=== PATIENT | male | born 1990 | race Caucasian/White ===

== ENCOUNTER 2020-07-11 23:37 | Emergency (ER) | payer MEDICAID, SELFPAY ==
[2020-07-11 23:38] VITALS: BP 128/78; PULSE 107; RESP 18; TEMP 36.7; O2SAT 100; BMI 25.0
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
[2020-07-12] MEDS: Ketorolac Tromethamine 60 MG/2 ML VIAL IM (01:20)
[2020-07-12] MEDS: Amoxicillin/Potassium Clav 875 MG TABLET PO (01:20)
[2020-07-12] MEDS: Cyclobenzaprine HCl 10 MG TABLET PO (01:20)
[2020-07-12 01:25] VITALS: BP 128/86; PULSE 87; RESP 16; O2SAT 100
== END 2020-07-12 01:40 | disposition home or self-care (01) ==
LOC: HO.ED 07-12 01:13
PROVIDERS: Emergency Provider Emergency Medicine
DX: G89.29 Other chronic pain (principal); M54.2 Cervicalgia; K02.9 Dental caries, unspecified; K08.89 Other specified disorders of teeth and supporting structures; F17.200 Nicotine dependence, unspecified, uncomplicated
CPT/HCPCS: 96372; 99284; J1885

== ENCOUNTER 2020-09-09 15:00 | Outpatient (RCR) | payer MEDICAID, SELFPAY | END 2020-10-16 14:18 | disposition other institution (70) | LOC: HO.PT 15:00 | PROVIDERS: PCP Registered Nurse Community Health; Visit Provider Registered Nurse Community Health | DX: M54.2 Cervicalgia (principal); M25.519 Pain in unspecified shoulder | CPT/HCPCS: 97110; 97161 ==

== ENCOUNTER 2021-01-31 16:25 | Emergency (ER) | payer MEDICAID, SELFPAY ==
[2021-01-31 18:09] VITALS: BP 138/75; PULSE 75; RESP 16; TEMP 37.1; O2SAT 100; BMI 24.3
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
== END 2021-01-31 19:12 | disposition home or self-care (01) ==
PROVIDERS: Emergency Provider Emergency Medicine
DX: M54.2 Cervicalgia (principal); F17.200 Nicotine dependence, unspecified, uncomplicated; Z71.6 Tobacco abuse counseling; Z79.899 Other long term (current) drug therapy
CPT/HCPCS: 99283

== ENCOUNTER 2021-05-17 05:08 | Emergency (ER) | payer MEDICAID, SELFPAY ==
--- NOTE | ~2021-05-17 | XR_ITS ---
EXAMINATION: XR LUMBOSACRAL SPINE CLINICAL INFORMATION: Back pain COMPARISON: CT abdomen pelvis November 06, 2018 TECHNIQUE: Three views of the lumbosacral spine. FINDINGS: 5 nonrib-bearing lumbar vertebral bodies are visualized. There is minimal levoscoliosis of the upper lumbar spine which may be positional in nature. Vertebral body heights and disc spaces are well-maintained. Sacroiliac joints are symmetric. XR/XR lumbar spine 2-3V IMPRESSION: Unremarkable radiographs of the lumbar spine.
[2021-05-17 05:09] VITALS: BP 123/77; PULSE 78; RESP 16; TEMP 35.6; O2SAT 100; BMI 26.4
--- NOTE | 2021-05-17 07:53 | ED_ITS ---
HPI - Back Pain/Injury General Chief Complaint: Back Pain/Injury Stated Complaint: back pain Time Seen by Provider: 05/17/21 07:47 Source: patient Mode of arrival: ambulatory Limitations: no limitations History of Present Illness HPI Narrative: This is a 31 years old patient or ambulated to the emergency department complaining of lower back pain x3 days, denies any radiation of the pain in the lower extremity, denies any numbness or tingling or weakness of the lower extremity. He states that was at work today he had to leave because of the pain he lift weights of work MD elicited complaint: back pain Onset (ago): day(s) (4) Timing: constant Severity: moderate Quality: dull Location: lumbar spine Radiation: none Exacerbating factors: none Relieving factors: none Context: while lifting Treatments prior to arrival: NSAIDS Related Data Previous Rx's Medication Instructions Recorded amoxicillin 875 mg-potassium 1 tab PO Q12H 7 Days #14 tab 07/12/20 clavulanate 125 mg tablet (Augmentin) cyclobenzaprine 10 mg tablet 10 mg PO TID PRN #20 tab 07/12/20 cyclobenzaprine 10 mg tablet 10 mg PO TID PRN #12 tab 01/31/21 lidocaine 5 % topical patch 1 patch TOPICAL DAILY #15 ea 01/31/21 (Lidoderm) naproxen 500 mg tablet 500 mg PO BID PRN #20 tab 01/31/21 cyclobenzaprine 10 mg tablet 10 mg PO TID #10 tab 05/17/21 naproxen 500 mg tablet (Naprosyn) 500 mg PO BID #20 tab 05/17/21 Allergies Allergy/AdvReac Type Severity Reaction Status Date / Time shellfish derived Allergy Unknown CAN'T Verified 05/17/21 05:14 [SHELLFISH DERIVED] BREATHE Review of Systems Review of Systems: Yes all other systems are reviewed and are negative Constitutional: Constitutional: Reports no additional constitutional complaints Eyes: Eyes: Reports no additional eye complaints Neurologic: Reports system reviewed and no additional complaints, except as documented and Reports Abnormal speech present [facility] Past Medical History Medical History No known health problems Social History Social History Alcohol intake: current Alcohol intake frequency: holidays/special occasions only Patient Tobacco Use Status: Current everyday Tobacco user Use of substances other than those prescribed or required for medical reasons: Yes Substance Use Type: Marijuana Last Used Substance: Unknown Advance Directives: No Advance Directives Information Provided: No Physical Exam Vital Signs: Vital Signs: Last Vital Signs Temp 97.7 F 05/17/21 08:30 Pulse 70 05/17/21 08:30 Resp 18 05/17/21 08:30 BP 140/90 H 05/17/21 08:30 Pulse Ox 100 05/17/21 08:30 Body Mass Index 26.4 Const: General: cooperative, healthy appearing, no acute distress and well developed Nutritional Appearance: average body habitus Orientation/consciousness: oriented to person, oriented to place, oriented to time and patient oriented x3 HENMT: Head: Yes normal to inspection Face and sinus: Yes normal facial exam Neck: Neck: Yes normal visual inspection and Yes full ROM Thyroid: Thyroid normal Lymphatic: no lymphadenopathy noted Resp: Effort & Inspection: normal respiratory effort and able to speak in complete sentences Auscultation: clear to auscultation bilaterally Cardio: Jugular venous distension: no JVD Rate: regular rate GI: Inspection: Yes normal to inspection Palpation (GI): Soft to palpation, not firm, nontender and no guarding Percussion: Yes normal to percussion Skin: General skin exam: no rashes or lesions noted Neuro: General: oriented to person, oriented to place, oriented to time, patient oriented x3, Normal light touch and pain sensation and no focal motor deficits Cranial nerves: Yes CN's II-XII intact bilaterally and Yes Bilaterally intact EOM present Cognition (Neuro): normal cognition Speech: Abnormal speech present Gait exam (Neuro): Normal gait present Motor exam (neuro): 5/5 motor strength present throughout Course Reevaluation(s) Reevaluation #1: FEEL BETTER ok TO D/C HOME MDM - Back Pain/Injury Imaging Data LS SPINE: Radiologist's impression: COMPARISON: CT abdomen pelvis November 06, 2018 TECHNIQUE: Three views of the lumbosacral spine. FINDINGS: 5 nonrib-bearing lumbar vertebral bodies are visualized. There is minimal levoscoliosis of the upper lumbar spine which may be positional in nature. Vertebral body heights and disc spaces are well-maintained. Sacroiliac joints are symmetric. XR/XR lumbar spine 2-3V IMPRESSION: Unremarkable radiographs of the lumbar spine. Dictated By: RADHA MACHUCA MD Signed By: <Electronically signed by RADHA MACHUCA MD in OV> 05/17/21 0912 Discharge Plan Discharge Clinical Impression: Strain of lumbar region Patient Disposition: Home, Self-Care Instructions: Acute Low Back Pain (ED) Prescriptions: New naproxen [Naprosyn] 500 mg tablet 500 mg PO BID Qty: 20 RF: 0 cyclobenzaprine 10 mg tablet 10 mg PO TID Qty: 10 RF: 0 No Action cyclobenzaprine 10 mg tablet 10 mg PO TID PRN (Reason: muscle spasm) Qty: 20 RF: 0 amoxicillin-pot clavulanate [Augmentin] 875-125 mg tablet 1 tab PO Q12H 7 Days Qty: 14 RF: 0 cyclobenzaprine 10 mg tablet 10 mg PO TID PRN (Reason: muscle spasm) Qty: 12 RF: 0 lidocaine [Lidoderm] 5 % adhesive patch,medicated 1 patch topical DAILY Qty: 15 RF: 0 naproxen 500 mg tablet 500 mg PO BID PRN (Reason: pain) Qty: 20 RF: 0 Stand Alone Forms: Work/School Release Interventions: ED Discharge Assessment Last Done: 05/17/21 10:20 Discharge Date/Time: 05/17/21 10:20
[2021-05-17] MEDS: NaPROXEN 500 MG TABLET PO (08:29)
[2021-05-17] MEDS: Cyclobenzaprine HCl 10 MG TABLET PO (08:29)
[2021-05-17 08:30] VITALS: BP 140/90; PULSE 70; RESP 18; TEMP 36.5; O2SAT 100
--- NOTE | 2021-05-17 08:36 | PC.NURSE ---
Pt alert and oriented x3. Pt states he has been having pain in his neck and right lower back which started about 2-3 days ago. He states he thinks he may have pulled a muscle at work because he does a lot of bending and lifting at work. No c/o any other symptoms. He reports taking Tylenol to help relieve the pain but it did not help. Pt is currently resting quietly, no apparent distress noted. Xray results pending.
== END 2021-05-17 10:20 | disposition home or self-care (01) ==
PROVIDERS: Emergency Provider Emergency Medicine
DX: S39.012A Strain of muscle, fascia and tendon of lower back, initial encounter (principal); X50.0XXA Overexertion from strenuous movement or load, initial encounter; Y93.89 Activity, other specified; Y92.89 Other specified places as the place of occurrence of the external cause; Y99.0 Civilian activity done for income or pay
CPT/HCPCS: 72100; 99283; 99284

== ENCOUNTER 2021-07-10 04:51 | Emergency (ER) | payer MEDICAID, SELFPAY ==
[2021-07-10 05:03] VITALS: BP 118/62; PULSE 102; RESP 16; TEMP 36.4; O2SAT 98; BMI 25.9
[2021-07-10 06:27] VITALS: BP 106/69; PULSE 74; RESP 16; TEMP 36.2; O2SAT 97
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
[2021-07-10] MEDS: Ibuprofen 600 MG TABLET PO (07:18)
[2021-07-10] MEDS: Bacitracin Oint 0.9 GM PACKET 1 APPL TOPICAL (07:18)
[2021-07-10] MEDS: Acetaminophen 325 MG TABLET 975 MG PO (07:18)
== END 2021-07-10 07:23 | disposition home or self-care (01) ==
PROVIDERS: Emergency Provider Emergency Medicine Emergency Medical Services
DX: T22.111A Burn of first degree of right forearm, initial encounter (principal); T22.211A Burn of second degree of right forearm, initial encounter; T31.0 Burns involving less than 10% of body surface; M79.631 Pain in right forearm; X12.XXXA Contact with other hot fluids, initial encounter; Y93.9 Activity, unspecified; Y92.9 Unspecified place or not applicable; Y99.9 Unspecified external cause status; F17.200 Nicotine dependence, unspecified, uncomplicated; Z71.6 Tobacco abuse counseling; Z79.899 Other long term (current) drug therapy
CPT/HCPCS: 16000; 99283; 99284

== ENCOUNTER 2021-08-18 02:52 | Emergency (ER) | payer MEDICAID, SELFPAY ==
[2021-08-18 03:00] VITALS: BP 120/80; PULSE 88; RESP 18; TEMP 37.3; O2SAT 98; BMI 24.4
[2021-08-18 03:36] LABS: COVID-19 Test Negative (Negative); IDNOW Serial# 9DD0AD1C
--- NOTE | 2021-08-18 05:20 | ED.GENADULT ---
HPI - General Adult General Chief complaint: General Medical Stated complaint: flu like symptoms Time Seen by Provider: 08/18/21 05:20 Source: patient Mode of arrival: ambulatory History of Present Illness HPI narrative: 31-year-old male who presents with no significant past medical history but states that yesterday he experienced body aches with 4-5 episodes of nonbilious/non bloody nausea and vomiting episodes as well as a few episodes of nonbloody diarrhea. Patient states he received initial COVID-19 vaccine but did not return for the 2nd 1. He states he actually feels better now and has been able to tolerate oral intake prior to arrival. Related Data Previous Rx's Medication Instructions Recorded amoxicillin 875 mg-potassium 1 tab PO Q12H 7 Days #14 tab 07/12/20 clavulanate 125 mg tablet (Augmentin) cyclobenzaprine 10 mg tablet 10 mg PO TID PRN #20 tab 07/12/20 cyclobenzaprine 10 mg tablet 10 mg PO TID PRN #12 tab 01/31/21 lidocaine 5 % topical patch 1 patch TOPICAL DAILY #15 ea 01/31/21 (Lidoderm) naproxen 500 mg tablet 500 mg PO BID PRN #20 tab 01/31/21 cyclobenzaprine 10 mg tablet 10 mg PO TID #10 tab 05/17/21 naproxen 500 mg tablet (Naprosyn) 500 mg PO BID #20 tab 05/17/21 bacitracin 500 unit/gram topical 1 appl TOPICAL Q12H 7 Days #28 g 07/10/21 ointment Allergies Allergy/AdvReac Type Severity Reaction Status Date / Time shellfish derived Allergy Unknown CAN'T Verified 05/17/21 05:14 [SHELLFISH DERIVED] BREATHE Review of Systems Review of Systems: Pertinent positives and negatives as stated in HPI 10 point review of systems is otherwise negative. [facility] Past Medical History Source: nursing notes reviewed Medical History No known health problems Social History Social History Alcohol intake: current Alcohol intake frequency: holidays/special occasions only Patient Tobacco Use Status: Current everyday Tobacco user Substance Use Type: Marijuana Advance Directives: No Physical Exam Vital Signs: Vital Signs: Last Vital Signs Temp 99.1 F 08/18/21 03:00 Pulse 88 08/18/21 03:00 Resp 18 08/18/21 03:00 BP 120/80 08/18/21 03:00 Pulse Ox 98 08/18/21 03:00 Body Mass Index 24.4 VITAL SIGNS: Reviewed. GENERAL: Well developed, well nourished, in no acute distress. HEAD: Normocephalic/atraumatic EYES: PERRLA, EOMI EARS: Ext canals without abnormality, TMs non-bulging and non-erythematous NOSE: Nasal congestion OROPHARYNX: no oral lesions noted, posterior pharynx clear and non-erythematous without noted tonsillar enlargement/erythema/exudates NECK: Supple, no adenopathy LUNGS: Normal breath sounds. No adventitious sounds or accessory muscle use. SpO2<98> CARDIOVASCULAR: Regular rate and rhythm without noted murmurs ABDOMEN: Soft, non-tender, non-distended with bowel sounds. NEUROLOGIC: Alert and oriented x 4. Course Course Course Narrative: This is a 31-year-old male with history and clinical presentation consistent with viral syndrome and on review COVID-19 testing is negative and patient was tolerating oral intake prior to discharge to home. He was instructed to continue with water intake and use [id number] Tylenol/ibuprofen as needed for body aches. Medical Decision Making Lab Data Labs: Lab Results 08/18/21 Range/Units 03:09 COVID-19 (BEBETO) Negative (Negative) COVID-19 Clin Com See Note Discharge Plan Discharge Clinical Impression: Viral syndrome, Lab test negative for COVID-19 virus Patient Disposition: Home, Self-Care Instructions: Viral Syndrome (ED) Additional Instructions: Continue drink plenty of water. Recommend using [id number] Tylenol/ibuprofen as needed for pain control, body aches, temperature greater than 100.4. Follow-up with your primary care provider in the next 2-3 days for re-evaluation. Return to the ER for acute worsening of symptoms. Prescriptions: No Action cyclobenzaprine 10 mg tablet 10 mg PO TID PRN (Reason: muscle spasm) Qty: 20 RF: 0 amoxicillin-pot clavulanate [Augmentin] 875-125 mg tablet 1 tab PO Q12H 7 Days Qty: 14 RF: 0 cyclobenzaprine 10 mg tablet 10 mg PO TID PRN (Reason: muscle spasm) Qty: 12 RF: 0 lidocaine [Lidoderm] 5 % adhesive patch,medicated 1 patch topical DAILY Qty: 15 RF: 0 naproxen 500 mg tablet 500 mg PO BID PRN (Reason: pain) Qty: 20 RF: 0 naproxen [Naprosyn] 500 mg tablet 500 mg PO BID Qty: 20 RF: 0 cyclobenzaprine 10 mg tablet 10 mg PO TID Qty: 10 RF: 0 bacitracin 500 unit/gram ointment 1 appl topical Q12H 7 Days Qty: 28 RF: 0 Referrals: [facility] [Primary Care Provider] - 2 days
[2021-08-18 05:26] VITALS: BP 122/85; PULSE 86; RESP 18; O2SAT 98
== END 2021-08-18 05:42 | disposition home or self-care (01) ==
PROVIDERS: Emergency Provider Student in an Organized Health Care Education/Training Program
DX: B34.9 Viral infection, unspecified (principal); M79.10 Myalgia, unspecified site; R11.2 Nausea with vomiting, unspecified; F17.200 Nicotine dependence, unspecified, uncomplicated; Z20.822 Contact with and (suspected) exposure to COVID-19; Z71.6 Tobacco abuse counseling; Z79.899 Other long term (current) drug therapy
CPT/HCPCS: 36415; 87635; 99283

== ENCOUNTER 2023-01-28 21:38 | Emergency (ER) | payer MEDICAID, SELFPAY ==
[2023-01-28 21:40] VITALS: BP 144/90; PULSE 92; RESP 18; TEMP 36.2; O2SAT 100; BMI 22.0
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
[2023-01-29] MEDS: Lidocaine HCl Viscous 2 % 15 ML SOLUTION MUCOUS MEM (01:30)
[2023-01-29] MEDS: oxyCODONE HCl Immed Release 5 MG TABLET PO (01:30)
[2023-01-29] MEDS: Lidocaine HCl 1 % MPF 2 ML VIAL INFILTRATI (01:30)
--- NOTE | 2023-01-29 01:40 | PC.NURSE ---
Addendum entered by Alondra Logan 01/29/23 01:41: 0100 time Original Note: assumed care of pt aox4 no apparent distress
--- NOTE | 2023-01-29 01:56 | PC.NURSE ---
discharge instructions given and explained to pt no apparent distress ambulates safely/independently
== END 2023-01-29 01:52 | disposition home or self-care (01) ==
PROVIDERS: Emergency Provider Emergency Medicine Emergency Medical Services
DX: K04.7 Periapical abscess without sinus (principal); G89.29 Other chronic pain; M54.2 Cervicalgia; F17.200 Nicotine dependence, unspecified, uncomplicated; F12.90 Cannabis use, unspecified, uncomplicated
CPT/HCPCS: 10160; 99284

== ENCOUNTER 2023-04-28 14:59 | Emergency (ER) | payer MEDICAID, SELFPAY ==
--- NOTE | 2023-04-28 15:51 | ED.DENTAL ---
HPI - Dental/Oral General Chief complaint: Dental/Oral Stated complaint: dental pain Time Seen by Provider: 04/28/23 15:57 Source: patient Mode of arrival: ambulatory Limitations: no limitations History of Present Illness HPI Narrative: 33 yo male presents to the ER for evaluation of upper molar pain on the left for the last few weeks along with upper back and neck pain. He states he has a broken tooth and he is due to see his dentist at the end of the month. Pain is worse with hot and cold foods. He denies any facial swelling, anterior neck pain. He reports upper back and shoulder pain as well for the last several weeks. It is worse with palpation and movement. No injuries. No chest pain, abdominal pain. MD Complaint: tooth pain Location: Tooth # (12) Onset (ago): week(s) Duration: intermittent Severity: moderate Relieving factors: nothing Exacerbating factors: chewing, cold and heat Context: poor dental care Treatment prior to arrival: none Related Data Previous Rx's Medication Instructions Recorded amoxicillin 875 mg-potassium 1 tab PO Q12H 7 days #14 tabs 07/12/20 clavulanate 125 mg tablet (Augmentin) cyclobenzaprine 10 mg tablet 10 mg PO TID PRN muscle spasm #20 07/12/20 tabs cyclobenzaprine 10 mg tablet 10 mg PO TID PRN muscle spasm #12 01/31/21 tabs lidocaine 5 % topical patch 1 patch topical DAILY #15 ea 01/31/21 (Lidoderm) naproxen 500 mg tablet 500 mg PO BID PRN pain #20 tabs 01/31/21 cyclobenzaprine 10 mg tablet 10 mg PO TID muscle spasm #10 tabs 05/17/21 naproxen 500 mg tablet (Naprosyn) 500 mg PO BID pain #20 tabs 05/17/21 bacitracin 500 unit/gram topical 1 appl topical Q12H 7 days #28 07/10/21 ointment grams amoxicillin 875 mg-potassium 1 tab PO BID #14 tabs 01/29/23 clavulanate 125 mg tablet oxycodone 5 mg tablet 5 mg PO Q8H PRN severe pain (scale 01/29/23 score 7-10) #12 tabs amoxicillin 875 mg-potassium 1 tab PO BID #14 tabs 04/28/23 clavulanate 125 mg tablet cyclobenzaprine 10 mg tablet 10 mg PO TID PRN muscle spasm #14 04/28/23 tabs ibuprofen 600 mg tablet 600 mg PO Q8H PRN pain #14 tabs 04/28/23 lidocaine 5 % topical patch 1 patch topical DAILY #15 ea 04/28/23 Allergies Allergy/AdvReac Type Severity Reaction Status Date / Time shellfish derived Allergy Unknown CAN'T Verified 05/17/21 05:14 [SHELLFISH DERIVED] BREATHE Review of Systems Review of Systems: Yes all other systems are reviewed and are negative [facility] Past Medical History Medical History No known health problems Social History Social History Alcohol intake: current Alcohol intake frequency: holidays/special occasions only Patient Tobacco Use Status: Current everyday Tobacco user Substance Use Type: Marijuana Advance Directives: No Advance Directives Information Provided: No Physical Exam Vital Signs: Vital Signs: Last Vital Signs Temp 98.0 F 04/28/23 15:52 Pulse 77 04/28/23 15:52 Resp 18 04/28/23 15:52 BP 111/76 04/28/23 15:52 Pulse Ox 99 04/28/23 15:52 O2 Del Method Room Air 04/28/23 15:52 BMI result Body Mass Index 28.3 Appearance: Alert. Oriented X3. No acute distress. Head: normocephalic, atraumatic. Eyes: Pupils equal, round and reactive to light. ENT: Pharynx normal. No tonsillar swelling or exudate. Left upper molar tooth #12 is broken down to the level of the gingiva with exposed root, tender associated gingiva without swelling or fluctuance. no trismus Neck: Normal inspection. Neck supple. soft tissue tenderness bilaterally of the upper trapezius muscles w/ palpable spasm CVS: Normal heart rate and rhythm. Pulses normal. Respiratory: No respiratory distress. Breath sounds normal. Abdomen: Soft and nontender. +BS x4 Skin: Skin warm and dry. Normal skin color. Normal skin turgor. No rashes. Extremities: No lower extremity edema. No joint swelling. Normal active and passive ROM of the bilateral shoulders. Neuro/psych: Oriented X 3. No motor deficit. No sensory deficit. CN II-XII intact. Normal speech and cognition. Medical Decision Making Medical Decision Making [facility] Narrative: 33 yo male presenting for evaluation of left upper dental pain and upper back and neck pain. back pain is muscular w/ palpable spasm on exam. dental exam reveals poor dentition w/ decay and exposed root of molar. will start abx and pain control until he can be seen by dentist later this month. stable for d/c home. Differential Diagnosis Differential Diagnoses: The differential diagnosis associated with the presentation includes toothache, dental abscess, dental trauma, exposed root External Record Review External record reviewed: Prior outpatient labs Prescription Management I considered prescription management with: Pain Medication and Antibiotic Chronic Conditions Patient?s care impacted by: Other (poor dentition) Critical Care Time Critical Care Time Critical Care Time: No Discharge Plan Discharge Clinical Impression: Muscle spasm, Pain, dental Patient Disposition: Home, Self-Care Instructions: Muscle Spasm (ED), Toothache (ED) Additional Instructions: Your pain is most likely due to muscle strain and spasm. Use ice several times per day for 20 minutes at a time for the next 48 hours and then change to heat. Take medications as prescribed to help with pain and discomfort. Follow up with your Primary Care Doctor as needed Follow up with your dentist as scheduled If you develop new or worsening symptoms call 911 or come back to the ER for further evaluation. Prescriptions: New amoxicillin-pot clavulanate 875-125 mg tablet 1 tab PO BID Qty: 14 0RF cyclobenzaprine 10 mg tablet 10 mg PO TID PRN (Reason: muscle spasm) Qty: 14 0RF ibuprofen 600 mg tablet 600 mg PO Q8H PRN (Reason: pain) Qty: 14 0RF lidocaine 5 % adhesive patch,medicated 1 patch topical DAILY Qty: 15 0RF Rx Instructions: leave on most painful area for up to 12 hrs No Action cyclobenzaprine 10 mg tablet 10 mg PO TID PRN (Reason: muscle spasm) Qty: 20 0RF amoxicillin-pot clavulanate [Augmentin] 875-125 mg tablet 1 tab PO Q12H 7 Days Qty: 14 0RF cyclobenzaprine 10 mg tablet 10 mg PO TID PRN (Reason: muscle spasm) Qty: 12 0RF lidocaine [Lidoderm] 5 % adhesive patch,medicated 1 patch topical DAILY Qty: 15 0RF Rx Instructions: leave on most painful area for up to 12 hrs naproxen 500 mg tablet 500 mg PO BID PRN (Reason: pain) Qty: 20 0RF naproxen [Naprosyn] 500 mg tablet 500 mg PO BID Qty: 20 0RF cyclobenzaprine 10 mg tablet 10 mg PO TID Qty: 10 0RF bacitracin 500 unit/gram ointment 1 appl topical Q12H 7 Days Qty: 28 0RF amoxicillin-pot clavulanate 875-125 mg tablet 1 tab PO BID Qty: 14 0RF oxycodone 5 mg tablet 5 mg PO Q8H PRN (Reason: severe pain (scale score 7-10)) Qty: 12 0RF Rx Instructions: Partial Fill upon patient request. Referrals: [facility] [Primary Care Provider] - Stand Alone Forms: Work/School Release Interventions: ED Discharge Assessment Last Done: 04/28/23 16:46 Discharge Date/Time: 04/28/23 16:46 Print Language: Turkmen
[2023-04-28 15:52] VITALS: BP 111/76; PULSE 77; RESP 18; TEMP 36.7; O2SAT 99; BMI 28.3
== END 2023-04-28 16:46 | disposition home or self-care (01) ==
PROVIDERS: Emergency Provider Emergency Medicine
DX: K08.89 Other specified disorders of teeth and supporting structures (principal); M62.838 Other muscle spasm; M54.2 Cervicalgia; Z79.899 Other long term (current) drug therapy
CPT/HCPCS: 99282; 99283

== ENCOUNTER 2024-02-07 01:38 | Emergency (ER) | payer MEDICAID, SELFPAY ==
[2024-02-07 02:42] VITALS: BP 123/70; PULSE 84; RESP 18; TEMP 36.5; O2SAT 100; BMI 27.9
[2024-02-07 07:18] VITALS: BP 128/80; PULSE 74; RESP 16; O2SAT 100
--- NOTE | 2024-02-07 07:18 | ED.GENADULT ---
HPI - General Adult General Chief complaint: General Medical Stated complaint: pain in neck and shoulders Time Seen by Provider: 02/07/24 07:18 Source: patient and old records reviewed Mode of arrival: ambulatory Limitations: no limitations History of Present Illness ED Provider: KWASI ELLISON narrative: 33 yo male who we have seen multiple times in the past for chronic neck pain here with same complaint tightness squeezing spasm in both trapezius - no numbness, weakness, fevers. Has done PT in past but cannot with his job. He denies new trauma. MD complaint: neck pain Onset (ago): day(s) (chronic but worse over past couple of days) Location: neck Radiation: non-radiation Severity: moderate Quality: aching and constant Pain Consistency: constant Relieving factors: rest Exacerbating factors: movement Associated symptoms: denies other symptoms Treatments prior to arrival: NSAID Related Data Previous Rx's ?Medication ?Instructions ?Recorded amoxicillin 875 mg-potassium 1 tab PO Q12H 7 days #14 tabs 07/12/20 clavulanate 125 mg tablet (Augmentin) cyclobenzaprine 10 mg tablet 10 mg PO TID PRN muscle spasm #20 07/12/20 tabs cyclobenzaprine 10 mg tablet 10 mg PO TID PRN muscle spasm #12 01/31/21 tabs lidocaine 5 % topical patch 1 patch topical DAILY #15 ea 01/31/21 (Lidoderm) naproxen 500 mg tablet 500 mg PO BID PRN pain #20 tabs 01/31/21 cyclobenzaprine 10 mg tablet 10 mg PO TID muscle spasm #10 tabs 05/17/21 naproxen 500 mg tablet (Naprosyn) 500 mg PO BID pain #20 tabs 05/17/21 bacitracin 500 unit/gram topical 1 appl topical Q12H 7 days #28 07/10/21 ointment grams amoxicillin 875 mg-potassium 1 tab PO BID #14 tabs 01/29/23 clavulanate 125 mg tablet oxycodone 5 mg tablet 5 mg PO Q8H PRN severe pain (scale 01/29/23 score 7-10) #12 tabs amoxicillin 875 mg-potassium 1 tab PO BID #14 tabs 04/28/23 clavulanate 125 mg tablet cyclobenzaprine 10 mg tablet 10 mg PO TID PRN muscle spasm #14 04/28/23 tabs ibuprofen 600 mg tablet 600 mg PO Q8H PRN pain #14 tabs 04/28/23 lidocaine 5 % topical patch 1 patch topical DAILY #15 ea 04/28/23 diazepam 5 mg tablet (Valium) 5 mg PO BID PRN muscle spasm #10 02/07/24 tabs lidocaine 5 % topical patch 1 patch topical DAILY #30 ea 02/07/24 Allergies Allergy/AdvReac Type Severity Reaction Status Date / Time shellfish derived Allergy Unknown CAN'T Verified 02/07/24 02:43 [SHELLFISH DERIVED] BREATHE Review of Systems Review of Systems: Constitutional : No Fever, No Chills ENT/Mouth : No Ear Pain, No Hoarseness, No sore throat Eyes: No Eye Pain, No Swelling, No Redness, No Foreign Body Cardiovascular : No Chest Pain, No SOB Respiratory : No Cough, No Dyspnea Gastrointestinal : No Nausea, No Vomiting, No Diarrhea, No abdominal Pain Genitourinary : No Dysuria, No Hematuria Musculoskeletal : positive neck pain, No Myalgias, No Joint Swelling Skin : No Skin lacerations, No rash Neuro : No Weakness, No Numbness, No Loss of Consciousness, No Dizziness, No Headache All other systems reviewed and are negative [facility] Past Medical History Attestation statement: The following information was validated with the patient. Source: old records reviewed Medical History (Updated 02/07/24 @ 07:27 by Taylor Zamarripa DO) Muscle spasms of neck Social History Social History Alcohol intake: current Alcohol intake frequency: holidays/special occasions only Patient Tobacco Use Status: Current everyday Tobacco user Substance Use Type: Marijuana Physical Exam ED Vital Signs: Vital Signs - 24 hr 02/07/24 02:42 Temperature 97.7 F Pulse Rate 84 Respiratory Rate 18 Blood Pressure 123/70 Pulse Oximetry 100 Oxygen Delivery Method Room Air BMI result Body Mass Index 27.9 Appearance: Alert. Oriented X3. No acute distress. Eyes: Pupils equal, round and reactive to light. ENT: Pharynx normal. Neck: ttp along both trapezius muscles - neg spurling maneuver distal NV intact CVS: Normal heart rate and rhythm. Pulses normal. Respiratory: No respiratory distress. Breath sounds normal. Abdomen: Soft and nontender. Skin: Skin warm and dry. Normal skin color. Extremities: No lower extremity edema. Neuro: Oriented X 3. No motor deficit. No sensory deficit. Medical Decision Making Medical Decision Making MDM Narrative: 33 yo male with hx of prior neck pain likely due to bending forward at his job here with recurrent spasm and pain NV intact no radicular symptoms UE intact at this time taking flexeril and motrin without relief. Will start on valium and lidocaine patches refer to PCP. Has no fevers or red flags on exam to suggest infection, mass, cord compression. Differential Diagnosis Differential Diagnoses: The differential diagnosis associated with the presentation includes strain, spasm External Record Review External record reviewed: Inpatient record Tests considered The following testing was considered but not selected: xray but no radicular symptoms or trauma NV intact not indicated Prescription Management I considered prescription management with: Other Discharge Plan Discharge Clinical Impression: Muscle spasms of neck Patient Disposition: Home, Self-Care Instructions: Muscle Spasm (ED), Chronic Neck Pain (DC) Additional Instructions: return for worsening pain, numbness, weakness, tingling or any other concerns. follow up with your doctor if not better Prescriptions: New lidocaine 5 % adhesive patch,medicated 1 patch topical DAILY Qty: 30 0RF Rx Instructions: leave on most painful area for up to 12 hrs diazepam [Valium] 5 mg tablet 5 mg PO BID PRN (Reason: muscle spasm) Qty: 10 0RF Rx Instructions: partial fill is okay No Action cyclobenzaprine 10 mg tablet 10 mg PO TID PRN (Reason: muscle spasm) Qty: 20 0RF amoxicillin-pot clavulanate [Augmentin] 875-125 mg tablet 1 tab PO Q12H 7 Days Qty: 14 0RF cyclobenzaprine 10 mg tablet 10 mg PO TID PRN (Reason: muscle spasm) Qty: 12 0RF lidocaine [Lidoderm] 5 % adhesive patch,medicated 1 patch topical DAILY Qty: 15 0RF Rx Instructions: leave on most painful area for up to 12 hrs naproxen 500 mg tablet 500 mg PO BID PRN (Reason: pain) Qty: 20 0RF naproxen [Naprosyn] 500 mg tablet 500 mg PO BID Qty: 20 0RF cyclobenzaprine 10 mg tablet 10 mg PO TID Qty: 10 0RF bacitracin 500 unit/gram ointment 1 appl topical Q12H 7 Days Qty: 28 0RF amoxicillin-pot clavulanate 875-125 mg tablet 1 tab PO BID Qty: 14 0RF oxycodone 5 mg tablet 5 mg PO Q8H PRN (Reason: severe pain (scale score 7-10)) Qty: 12 0RF Rx Instructions: Partial Fill upon patient request. amoxicillin-pot clavulanate 875-125 mg tablet 1 tab PO BID Qty: 14 0RF cyclobenzaprine 10 mg tablet 10 mg PO TID PRN (Reason: muscle spasm) Qty: 14 0RF ibuprofen 600 mg tablet 600 mg PO Q8H PRN (Reason: pain) Qty: 14 0RF lidocaine 5 % adhesive patch,medicated 1 patch topical DAILY Qty: 15 0RF Rx Instructions: leave on most painful area for up to 12 hrs Stand Alone Forms: Work/School Release Print Language: Anguillan
[2024-02-07 07:23] VITALS: BP 128/80; PULSE 74; RESP 16; TEMP 36.5; O2SAT 100
== END 2024-02-07 08:05 | disposition home or self-care (01) ==
LOC: HO.ED 08:04
PROVIDERS: Emergency Provider Emergency Medicine
DX: M62.838 Other muscle spasm (principal); M54.2 Cervicalgia
CPT/HCPCS: 99283

== ENCOUNTER 2024-07-12 15:40 | Emergency (ER) | payer SELFPAY ==
[2024-07-12 16:11] VITALS: BP 123/63; PULSE 81; RESP 18; TEMP 36.7; O2SAT 99; BMI 24.4
--- NOTE | 2024-07-12 16:12 | ED_ITS ---
HPI - URI/Sore Throat General Chief Complaint: General Medical Stated Complaint: sore [id number] Time Seen by Provider: 07/12/24 18:20 Source: patient Mode of arrival: ambulatory Limitations: no limitations History of Present Illness HPI Narrative: This is a 34-year-old man who presents for evaluation of sore throat, cough, headache and myalgias for 1 day. Patient state 1 day of fever. Patient reports dry cough without sputum production. Patient states no pleuritic chest pain or shortness of breath. He states no exertional symptoms. He states no syncope. He states no abdominal pain or back pain. He states no nausea, vomiting, GI or symptoms. Related Data Previous Rx's ?Medication ?Instructions ?Recorded amoxicillin 875 mg-potassium 1 tab PO Q12H 7 days #14 tabs 07/12/20 clavulanate 125 mg tablet (Augmentin) cyclobenzaprine 10 mg tablet 10 mg PO TID PRN muscle spasm #20 07/12/20 tabs cyclobenzaprine 10 mg tablet 10 mg PO TID PRN muscle spasm #12 01/31/21 tabs lidocaine 5 % topical patch 1 patch topical DAILY #15 ea 01/31/21 (Lidoderm) naproxen 500 mg tablet 500 mg PO BID PRN pain #20 tabs 01/31/21 cyclobenzaprine 10 mg tablet 10 mg PO TID muscle spasm #10 tabs 05/17/21 naproxen 500 mg tablet (Naprosyn) 500 mg PO BID pain #20 tabs 05/17/21 bacitracin 500 unit/gram topical 1 appl topical Q12H 7 days #28 07/10/21 ointment grams amoxicillin 875 mg-potassium 1 tab PO BID #14 tabs 01/29/23 clavulanate 125 mg tablet oxycodone 5 mg tablet 5 mg PO Q8H PRN severe pain (scale 01/29/23 score 7-10) #12 tabs amoxicillin 875 mg-potassium 1 tab PO BID #14 tabs 04/28/23 clavulanate 125 mg tablet cyclobenzaprine 10 mg tablet 10 mg PO TID PRN muscle spasm #14 04/28/23 tabs ibuprofen 600 mg tablet 600 mg PO Q8H PRN pain #14 tabs 04/28/23 lidocaine 5 % topical patch 1 patch topical DAILY #15 ea 04/28/23 diazepam 5 mg tablet (Valium) 5 mg PO BID PRN muscle spasm #10 02/07/24 tabs lidocaine 5 % topical patch 1 patch topical DAILY #30 ea 02/07/24 Allergies Allergy/AdvReac Type Severity Reaction Status Date / Time shellfish derived Allergy Unknown CAN'T Verified 07/12/24 16:11 [SHELLFISH DERIVED] BREATHE Review of Systems Review of Systems: ROS as per HPI PMFSH Past Medical History Medical History (Updated 07/12/24 @ 18:23 by Mic Talavera MD) Muscle spasms of neck Social History Social History Alcohol intake: current Alcohol intake frequency: holidays/special occasions only Patient Tobacco Use Status: Current everyday Tobacco user Substance Use Type: Marijuana Physical Exam Vital Signs: Vital Signs: Last Vital Signs Temp 98.2 F 07/12/24 18:13 Pulse 78 07/12/24 18:13 Resp 16 07/12/24 18:13 BP 110/73 07/12/24 18:13 Pulse Ox 99 07/12/24 18:13 O2 Del Method Room Air 07/12/24 18:13 BMI result Body Mass Index 24.4 Gen: NAD, AOx3 HEENT: NCAT, EOMI, normal conjunctiva uvula midline without edema, minimal posterior oropharynx erythema without exudates, no tonsillar edema/exudates, no buccal lesions, palate is symmetrical, no nuchal rigidity CV: RRR, no murmurs appreciated Pulm: CTAB, no increased work of breathing GI: Soft, NTND, no rebound, guarding or rigidity Neuro: Grossly non focal Course Course Course Narrative: This is an RME: Additional HPI, ROS, PE not included below will be deferred to primary provider. RME assessment and note performed by: Radha Fernandez PA-C This is a 34-year-old male who presents emergency department with complaints of sore throat, body aches, headaches congestion since yesterday. Plan: Viral swabs, strep swab Medical Decision Making Medical Decision Making MDM Narrative: Differential diagnosis includes, but is not limited to viral URI, pharyngitis. Patient is afebrile and hemodynamically stable on room air. Exam is benign and reassuring. Patient has negative for COVID-19, influenza and RSV. Strep throat is negative. On re-examination, patient is well-appearing and in no acute distress. ?There is no indication for further emergent evaluation in this otherwise well-appearing patient as above. ?Patient is provided written and verbal instructions, educational materials, recommendations for outpatient follow-up, strict return precautions and teach back is performed. ?Patient states understanding and agreement with plan of care. ?Patient is discharged home in stable and improved condition. Admission/Observation Consideration of admission/observation: Escalation of care including admission/observation considered Lab Data Labs: Lab Results 07/12/24 Range/Units 16:31 Influenza Type A (PCR) NEGATIVE (Negative) Influenza Type B (PCR) NEGATIVE (Negative) RSV RNA Qual (PCR) NEGATIVE (Negative) SARS-CoV-2 RNA (RT-PCR) NEGATIVE (Negative) S. pyogenes GrpA MIRELLA Negative (Negative) Discharge Plan Discharge Clinical Impression: Upper respiratory infection, viral Patient Disposition: Home, Self-Care Instructions: Upper Respiratory Infection (ED) Additional Instructions: You were seen and evaluated in the emergency room. Your vital signs were reassuring. You tested negative for COVID-19, influenza and RSV. Your strep test was negative. Please take 1000 mg every 8 hours for pain or fever. You may take 600 mg ibuprofen with food and water every 6 hours for additional pain or fever relief. Please follow-up with your primary care doctor in the next 1-2 weeks as needed. Please return to the emergency room with any new concerning symptoms including, but not limited to difficulty breathing. Prescriptions: No Action cyclobenzaprine 10 mg tablet 10 mg PO TID PRN (Reason: muscle spasm) Qty: 20 0RF amoxicillin-pot clavulanate [Augmentin] 875-125 mg tablet 1 tab PO Q12H 7 Days Qty: 14 0RF cyclobenzaprine 10 mg tablet 10 mg PO TID PRN (Reason: muscle spasm) Qty: 12 0RF lidocaine [Lidoderm] 5 % adhesive patch,medicated 1 patch topical DAILY Qty: 15 0RF Rx Instructions: leave on most painful area for up to 12 hrs naproxen 500 mg tablet 500 mg PO BID PRN (Reason: pain) Qty: 20 0RF naproxen [Naprosyn] 500 mg tablet 500 mg PO BID Qty: 20 0RF cyclobenzaprine 10 mg tablet 10 mg PO TID Qty: 10 0RF bacitracin 500 unit/gram ointment 1 appl topical Q12H 7 Days Qty: 28 0RF amoxicillin-pot clavulanate 875-125 mg tablet 1 tab PO BID Qty: 14 0RF oxycodone 5 mg tablet 5 mg PO Q8H PRN (Reason: severe pain (scale score 7-10)) Qty: 12 0RF Rx Instructions: Partial Fill upon patient request. amoxicillin-pot clavulanate 875-125 mg tablet 1 tab PO BID Qty: 14 0RF cyclobenzaprine 10 mg tablet 10 mg PO TID PRN (Reason: muscle spasm) Qty: 14 0RF ibuprofen 600 mg tablet 600 mg PO Q8H PRN (Reason: pain) Qty: 14 0RF lidocaine 5 % adhesive patch,medicated 1 patch topical DAILY Qty: 15 0RF Rx Instructions: leave on most painful area for up to 12 hrs lidocaine 5 % adhesive patch,medicated 1 patch topical DAILY Qty: 30 0RF Rx Instructions: leave on most painful area for up to 12 hrs diazepam [Valium] 5 mg tablet 5 mg PO BID PRN (Reason: muscle spasm) Qty: 10 0RF Rx Instructions: partial fill is okay Stand Alone Forms: Work/School Release Print Language: Liberian
[2024-07-12 16:57] LABS: IDNOW Serial# 08D9AD1C; Strep A Nucleic Acid Negative (Negative)
[2024-07-12 17:17] LABS: Influenza A PCR NEGATIVE (Negative); Influenza B PCR NEGATIVE (Negative); Resp Syncy Virus RNA Qual PCR NEGATIVE (Negative); SARS COV2 PCR INHOUSE NEGATIVE (Negative)
[2024-07-12 18:13] VITALS: BP 110/73; PULSE 78; RESP 16; TEMP 36.8; O2SAT 99
[2024-07-12 19:07] VITALS: BP 110/73; PULSE 78; RESP 16; TEMP 36.8; O2SAT 99
== END 2024-07-12 19:07 | disposition home or self-care (01) ==
LOC: HO.ED 18:53
PROVIDERS: Physician Assistant Medical; Emergency Provider Emergency Medicine
DX: J06.9 Acute upper respiratory infection, unspecified (principal); R05.9 Cough, unspecified; J02.9 Acute pharyngitis, unspecified; Z03.818 Encounter for observation for suspected exposure to other biological agents ruled out
CPT/HCPCS: 0241U; 87651; 99283